=== PATIENT | male | born 1980 | race Caucasian/White ===

== ENCOUNTER 2017-03-29 15:32 | Emergency (ER) | payer SELFPAY ==
[2017-03-29 15:37] VITALS: BP 141/88; BMI 29.8
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
--- NOTE | 2017-03-29 16:25 | RAD ---
Right hand, three views Indication: Hand pain Comparison: None Findings: No acute fracture or malalignment is identified. Joint spaces are preserved. Soft tissues a re unremarkable. Impression: No acute radiographic abnormality of the right hand. Reported By:
[2017-03-29] MEDS ORDERED: ULTRAM PO ONE (17:29)
[2017-03-29] MEDS ORDERED: ULTRAM ONE (17:31)
== END 2017-03-29 17:30 | disposition home or self-care (01) ==
LOC: ER 15:41
DX: S63.91XA Sprain of unspecified part of right wrist and hand, initial encounter (principal); Y33.XXXA Other specified events, undetermined intent, initial encounter; Y92.69 Other specified industrial and construction area as the place of occurrence of the external cause
CPT/HCPCS: 73130; 99282